=== PATIENT | male | born 1950 | race Caucasian/White ===

== ENCOUNTER 2016-12-05 13:30 | Emergency (ER) | payer OTHER, MEDICARE, BC ==
[2016-12-05 13:47] VITALS: BP 136/86
--- NOTE | 2016-12-05 14:23 | ERNOTE ---
Date of Service: 12/05/16 Time Seen by Provider: 12/05/16 14:07 Stated Complaint: COUGH Presenting Symptoms:: cough, runny nose Source: patient Exam Limitations: no limitations Immunizations: IMMUNIZATION HX Immunizations Up to Date Yes History of Influenza Vaccine Yes Hx Pneumococcal Vaccination Yes Allergies/Adverse Reactions: Allergies No Known Allergies Allergy (Verified 12/05/16 13:47) Home Medications: HOME MEDICATIONS Doxycycline Monohydrate 100 mg PO BID #20 tablet 12/05/16 [Last Taken Unknown] predniSONE [Prednisone] 3 tab PO DAILY #9 tab 12/05/16 [Last Taken Unknown] - History of Present Ilness Narrative: Pt. comes in with c/o sinus congestion, rhinorrhea, sore throat, and cough with chest congestion and yellow sputum for a week. Pt. 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 Pt. denies any chest pain, SOB, NVD, fever, recent illness o injury. Pt. does not take medications on a regular basis. Review of Systems - Review of Systems Constitutional: Present: no symptoms reported. Absent: recent illness, fever, chills, malaise EYE: Present: no symptoms reported ENT: Present: nose congestion, nasal drainage, sore throat Respiratory: Present: cough. Absent: shortness of breath, orthopnea, wheezing Cardiology: Present: no symptoms reported. Absent: chest pain, palpitations, edema Gastrointestinal/Abdominal: Present: no symptoms reported. Absent: nausea, vomiting, diarrhea Genitourinary: Present: no symptoms reported Musculoskeletal: Present: no symptoms reported. Absent: back pain, muscle pain , joint pain, joint swelling Skin: Present: no symptoms reported. Absent: rash, lesions, lumps Neurological: Present: no symptoms reported. Absent: anxiety, depressed All Other Systems: All systems neg except as marked - Patient's Past Medical History Patient History - Medical: No pertinent hx Patient History - Cardiac/Respiratory: Asthma Patient History - Cancer: No Hx of Cancer Patient History - Surgical Procedures: Appendectomy, T & A Patient History - Other: None - Social History Living Situations: alone Abuse History: No History of abuse Psych History: No pertinent hx Smoking Status: Never smoker Alcohol Use: none Drug Use: none - Immunizations Immunizations Up to Date: Yes Hx Pneumococcal Vaccination: Yes History of Influenza Vaccine: Yes Physical Exam - Physical Exam General Appearance: Present: wd/wn, alert, no apparent distress Head Exam: Present: normal inspection, no evidence of injury Eye Exam: Normal inspection: bilateral, PERRL: bilateral, EOMI: bilateral Ears, Nose, Throat: Present: nasal congestion, sinus pain/drainage, pharyngeal erythema. Absent: pharyngeal swelling, tonsillar exudate Neck: Present: normal inspection, nontender, supple, full range of motion. Absent: lymphadenopathy (R), lymphadenopathy (L) Respiratory: Present: no respiratory distress, normal breath sounds, no accessory muscle use, chest nontender, lungs clear Cardiovascular/Chest: Present: regular rate, rhythm, no murmur, normal peripheral pulses Gastrointestinal/Abdominal: Present: normal bowel sounds, nontender, nondistended, soft, no organomegaly Back Exam: Present: normal inspection, normal range of motion, no CVA tenderness , no vertebral tenderness Extremity Exam: Present: normal inspection Neurological Exam: Present: alert, oriented, normal mood/affect, no motor/ sensory deficits Skin Exam: Present: normal color, warm/dry ED Progress - Date and Time Seen: Date and Time: 12/05/16 15:01 As pt. has small LLL pleural effusion feel that this is likely pneumonia realated and will treat with abx and steroids and have pt. follow up with his PCP in 2-3 days to ensure resolution. - Results and Orders Patient's Lab Results:: I have reviewed the patient's lab results. - Vital Signs Patient's Vital Signs:: I have reviewed the patient's vital signs. Vital Signs: Vital Signs 12/05/16 13:42 Temperature 37.3 C Pulse Rate 80 Respiratory 16 Rate Blood Pressure 136/86 O2 Sat by Pulse 98 Oximetry - X-Ray X-Ray #1 X-Ray: chest Interpretation: Reviewed by me X-ray Comments: LLL pleural effusion - Progress/Reassessment Chief Complaint: Upper Respiratory Symptoms Progress:: Unchanged Departure - Departure Clinical Impression: Pneumonia Qualifiers: Pneumonia type: due to unspecified organism Laterality: left Lung location: lower lobe of lung Qualified Code(s): J18.1 - Lobar pneumonia, unspecified organism Disposition: Home self-care Condition: Good Instructions: Community-Acquired Pneumonia, Adult, [id number] Additional Instructions: Please follow up with your primary provider in 2-3 days and please rest until you are seen by them. Referrals: Declan Baptiste DO [Primary Care Provider] - Prescriptions: Doxycycline Monohydrate 100 mg PO BID #20 tablet predniSONE [Prednisone] 3 tab PO DAILY #9 tab
== END 2016-12-05 15:10 | disposition home or self-care (01) ==
LOC: ER 13:30
DX: J18.1 Lobar pneumonia, unspecified organism (principal)